=== PATIENT | male | born 1940 | race African-American/Black ===

== ENCOUNTER 2019-06-10 01:27 | Inpatient (IN) | payer MEDICAID ==
[2019-06-10] VITALS (11 sets, daily range): BP systolic 132–159; BP diastolic 78–116
[~2019-06-10] VITALS: Ht 167.6 cm; Wt 54.4 kg
--- NOTE | 2019-06-10 01:30 | NUR ---
ED Nurse Note: Pt brought into ED by HERI from [facility] for c/o chest pain, unknown onset. Pt states he has had the pain for a long time and it has become worse. Pt states pain is mid chest and nonradiating. Per HERI, pt also had temp of 101F at facility, but upon ED arrival temp is 99.0F. Pt is aaox3, breathing is normal and unlabored, HR elevated, but no acute distress noted. Pt placed on fire official and into gown. Will continue to monitor.
[2019-06-10] MEDS ORDERED: ACETAMINOPHEN120 MG RECTAL (01:44)
[2019-06-10] MEDS ORDERED: Acetaminophen 500mg (ES) tab ORAL ONE (01:45)
[2019-06-10] MEDS ORDERED: Cefepime HCl 2 GM in D5W 55 ML IVPB ONE (01:45)
[2019-06-10] MEDS ORDERED: Vancomycin 1 GM in NS 275 ML IVPB ONE (01:45)
[2019-06-10] MEDS ORDERED: MONOJECT H100 UNIT/1 IV (01:46)
[2019-06-10] MEDS ORDERED: BISACODYL5 MG RECTAL (01:46)
[2019-06-10] MEDS ORDERED: IPRAT-ALBUT 0.5-3 ML IH (01:46)
--- NOTE | 2019-06-10 01:46 | Emergency Room Report ---
History of Present Illness General Chief Complaint: Chest Pain Source: Patient, Medical Record, EMS Present Illness HPI Patient is a 79-year-old male past medical history of COPD, pneumonia, sepsis, generalized anxiety disorder, DVT on hospice and palliative care who was sent here from his extended care facility for chest pain. Patient is a poor historian and states that he has had chest pain since February. Patient was found to be febrile and therefore was sent to the emergency room. I asked him if his chest pain was any different tonight than it has been over the past several months and he says no. He denies any chills. He denies any shortness of breath, nausea, abdominal pain or vomiting. He denies any pain to his lower legs. He denies any rash. COVID-19 risk:Contact w/high r: No COVID-19 risk:Travel to affect: No Has patient experienced green: No Coronavirus symptoms experienc: Fever (T>100.4F or >38C) Allergies: Coded Allergies: No Known Allergies (Unverified , 06/10/19) Patient History Social History: Reports: smoking Reviewed Nursing Documentation: PMH: Agreed; PSxH: Agreed Nursing Documentation-PMH Hx COPD: Yes - PNA, respuratoy failure, bilateral lower extremity thromosis Review of Systems All Other Systems: negative except mentioned in HPI Physical Exam Vital Signs Date Time Temp Pulse Resp B/P (MAP) Pulse Ox O2 Delivery O2 Flow Rate FiO2 06/10/19 01:30 100.9 109 18 154/82 (106) 97 Room Air Sp02 EP Interpretation: reviewed, normal General Appearance: other - tearful, Chronically Ill Head: normocephalic, atraumatic Eyes: bilateral eye normal inspection, bilateral eye PERRL ENT: hearing grossly normal, normal pharynx, no angioedema, normal voice Neck: full range of motion, supple/symm/no masses Respiratory: chest non-tender, no respiratory distress, rhonchi, speaking full sentences, wheezing - scattered Cardiovascular #1: tachycardia Cardiovascular #2: 2+ radial (R), 2+ radial (L) Gastrointestinal: normal bowel sounds, non tender, soft, non-distended, no guarding, no rebound Rectal: deferred Neurologic: alert, visitor services coordinator III-XII nml as tested Psychiatric: other - tearful Skin: no rash Lymphatic: no adenopathy Medical Decision Making Diagnostic Impression: Primary Impression: Chest pain Additional Impression: Transaminitis ER Course Patient presented febrile and tachycardic. Patient has history of DVT. Patient pancultured. Patient started on broad-spectrum antibiotics and given IV fluids. Patient also given Tylenol for fever. Patient persistently tachycardic concern for pulmonary embolism. CTA ordered which demonstrates no evidence for PE. Patient will be admitted for further treatment and evaluation. Covid-19 testing sent. Laboratory Tests Test 06/10/19 01:45 06/10/19 02:00 Lactic Acid Level 1.40 mmol/L (0.4-2.0) White Blood Count 7.5 K/UL (4.8-10.8) Red Blood Count 4.06 M/UL (4.70-6.10) L Hemoglobin 12.5 G/DL (14.2-18.0) L Hematocrit 35.1 % (42.0-52.0) L Mean Corpuscular Volume 86 FL (80-99) Mean Corpuscular Hemoglobin 30.8 PG (27.0-31.0) Mean Corpuscular Hemoglobin Concent 35.6 G/DL (32.0-36.0) Red Cell Distribution Width 15.8 % (11.6-14.8) H Platelet Count 186 K/UL (150-450) Mean Platelet Volume 5.5 FL (6.5-10.1) L Neutrophils (%) (Auto) 73.1 % (45.0-75.0) Lymphocytes (%) (Auto) 19.3 % (20.0-45.0) L Monocytes (%) (Auto) 6.6 % (1.0-10.0) Eosinophils (%) (Auto) 0.1 % (0.0-3.0) Basophils (%) (Auto) 0.9 % (0.0-2.0) Prothrombin Time 9.9 SEC (9.30-11.50) Prothrombin Time INR 0.9 (0.9-1.1) Activated Partial Thromboplast Time 25 SEC (23-33) Urine Color Yellow Urine Appearance Clear Urine pH 7 (4.5-8.0) Urine Specific [place] 1.015 (1.005-1.035) Urine Protein Negative (NEGATIVE) Urine Glucose (UA) Negative (NEGATIVE) Urine Ketones Negative (NEGATIVE) Urine Blood Negative (NEGATIVE) Urine Nitrite Negative (NEGATIVE) Urine Bilirubin Negative (NEGATIVE) Urine Urobilinogen 4 MG/DL (0.0-1.0) H Urine Leukocyte Esterase Negative (NEGATIVE) Sodium Level 139 MMOL/L (136-145) Potassium Level 4.1 MMOL/L (3.5-5.1) Chloride Level 99 MMOL/L (98-107) Carbon Dioxide Level 33 MMOL/L (21-32) H Anion Gap 7 mmol/L (5-15) Blood Urea Nitrogen 22 mg/dL (7-18) H Creatinine 0.8 MG/DL (0.55-1.30) Estimated Glomerular Filtration Rate > 60 mL/min (>60) Glucose Level 120 MG/DL (74-106) H Calcium Level 9.3 MG/DL (8.5-10.1) Magnesium Level 1.6 MG/DL (1.8-2.4) L Total Bilirubin 0.9 MG/DL (0.2-1.0) Aspartate Amino Transferase (AST) 96 U/L (15-37) H Alanine Aminotransferase (ALT) 100 U/L (12-78) H Alkaline Phosphatase 343 U/L (46-116) H Total Creatine Kinase 32 U/L (26-308) Troponin I 0.008 ng/mL (0.000-0.056) Pro-B-Type Natriuretic Peptide 715 pg/mL (0-125) H Total Protein 6.7 G/DL (6.4-8.2) Albumin 2.6 G/DL (3.4-5.0) L Globulin 4.1 g/dL Albumin/Globulin Ratio 0.6 (1.0-2.7) L Microbiology Date/Time Source Procedure Growth Status 06/10/19 01:45 Nasal Nares - Final Complete 3 01:45 Nasal Nares - Final Complete EKG Diagnostic Results EKG Time: 01:33 EP Interpretation: MD Tricia Rate: tachycardiac Rhythm: other - sinus tachycardia ST Segments: no acute changes ASA given to the pt in ED: Yes Rhythm Strip Diag. Results Rhythm Strip Time: 01:46 EP Interpretation: yes - MD Tricia Rate: 114 Rhythm: no PVC's, no ectopy, other - sinus tachycardia Last Vital Signs Date Time Temp Pulse Resp B/P (MAP) Pulse Ox O2 Delivery O2 Flow Rate FiO2 06/10/19 01:30 100.9 109 18 154/82 (106) 97 Room Air Disposition: ADMITTED INPATIENT Condition: Critical Physician Consult: Dr. Johnson to admit to telemetry Referrals: NON PHYSICIAN (PCP) Haylee Clarke M.D. Jun 10, 2019 01:46
[2019-06-10] MEDS ORDERED: LEVSIN0.125 MG ORAL (01:50)
[2019-06-10] MEDS ORDERED: MORPHINE S ORAL (01:50)
[2019-06-10] MEDS ORDERED: MORPHINE 22 MG/1 ML PO (01:52)
[2019-06-10] MEDS ORDERED: MORPHINE 22 MG/1 ML ORAL (01:56)
[2019-06-10] MEDS ORDERED: Aspirin Baby 81mg ORAL ONE (02:00)
[2019-06-10] MEDS ORDERED: MULTIVITAMINS1 EA14 PO (02:01)
[2019-06-10] MEDS ORDERED: PROMETHAZI6.25 MG/1 ORAL (02:01)
[2019-06-10] MEDS ORDERED: ONDANSETRON ODT4 MG BC (02:01)
[2019-06-10] MEDS ORDERED: PREDNISONE20 MG ORAL (02:01)
[2019-06-10] MEDS ORDERED: NORCO 5-325 TA1 EAC1 ORAL (02:01)
[2019-06-10 02:31] LABS: APPEARANCE,URINE CLEAR; BILIRUBIN, URINE NEGATIVE (NEGATIVE); GLUCOSE, URINE (UA) NEGATIVE (NEGATIVE); KETONES,URINE NEGATIVE (NEGATIVE); LEUKOCYTE ESTERASE ,URINE NEGATIVE (NEGATIVE); NITRITE,URINE NEGATIVE (NEGATIVE); PH,URINE 7 (4.5-8.0); PROTEIN,URINE NEGATIVE (NEGATIVE); UROBILINOGEN,URINE 4 MG/DL (0.0-1.0)
[2019-06-10 02:34] LABS: BASOPHILS % (AUTO) 0.9 % (0.0-2.0); EOSINOPHILS % (AUTO) 0.1 % (0.0-3.0); HEMATOCRIT 35.1 % (42.0-52.0); HEMOGLOBIN 12.5 G/DL (14.2-18.0); LYMPHOCYTES % (AUTO) 19.3 % (20.0-45.0); MEAN CORPUSCULAR VOLUME 86 FL (80-99); MONOCYTES % (AUTO) 6.6 % (1.0-10.0); NEUTROPHILS % (AUTO) 73.1 % (45.0-75.0); PLATELET COUNT 186 K/UL (150-450); RED BLOOD COUNT 4.06 M/UL (4.70-6.10); RED CELL DISTRIBUTION WIDTH 15.8 % (11.6-14.8); WHITE BLOOD COUNT 7.5 K/UL (4.8-10.8)
[2019-06-10 02:35] LABS: COLOR,URINE YELLOW
[2019-06-10 02:39] LABS: INR 0.9 (0.9-1.1)
[2019-06-10 02:41] LABS: ANION GAP 7 mmol/L (5-15); BLOOD UREA NITROGEN 22 mg/dL (7-18); CALCIUM 9.3 MG/DL (8.5-10.1); CARBON DIOXIDE 33 MMOL/L (21-32); CHLORIDE 99 MMOL/L (98-107); CREATININE 0.8 MG/DL (0.55-1.30); POTASSIUM 4.1 MMOL/L (3.5-5.1); SODIUM 139 MMOL/L (136-145)
[2019-06-10 02:54] LABS: ALANINE AMINOTRANSFERASE 100 U/L (12-78); ALBUMIN 2.6 G/DL (3.4-5.0); ALBUMIN/GLOBULIN RATIO 0.6 (1.0-2.7); ALKALINE PHOSPHATASE 343 U/L (46-116); ASPARTATE AMINO TRANSFERASE 96 U/L (15-37); BILIRUBIN,TOTAL 0.9 MG/DL (0.2-1.0); CREATINE KINASE 32 U/L (26-308)
--- NOTE | 2019-06-10 03:00 | NUR ---
ED Nurse Note: Pt is awake and alert, resting in bed at this time. Pt provided with nourishment after cleared by ERMD. No acute distress noted. VSS for pt. Will continue to monitor.
[2019-06-10] MEDS ORDERED: Omnipaque 350 100ml vial INJ PRN (03:15)
--- NOTE | 2019-06-10 04:24 | Diagnostic Imaging Report ---
Indication: Chest pain Technique: Continuous helical transaxial imaging of the chest was obtained from the thoracic inlet to the upper abdomen during rapid intravenous contrast administration. Arterial phase of enhancement obtained. Coronal 2-D reformats were also obtained and maximum intensity projection images in multiple planes. Study obtained in a Siemens sensation [address] Automatic Exposure Control was utilized. Total Dose length Product (DLP): 140.[address] Dose Index Volume (CTDIvol): 105.43 mGy Comparison: None Findings: The pulmonary artery is well opacified and shows no filling defects. There is no adenopathy, pleural or pericardial effusions are identified. There is no aortic dissection or aneurysm identified within the chest. The esophagus is dilated and there is suggestion of wall thickening. Consider further evaluation with EGD. Reticular densities are demonstrated at both lung bases with bronchiectasis and mild groundglass opacification. There is emphysema within the lungs with scattered areas of hyperlucency. The visualized part of the upper abdomen demonstrates a contracted gallbladder with multiple stones. There may be trace fluid anterior to the liver. IMPRESSION: No evidence of pulmonary embolus, aortic dissection or aneurysm. Pulmonary emphysema and other chronic changes as described above. Gallstones. Trace intracapsular fluid adjacent to the right lobe of the liver. The CT scanner at [facility] is accredited by the [employer] and the scans are performed using dose optimization techniques as appropriate to a performed exam including Automatic Exposure control.
--- NOTE | 2019-06-10 05:30 | NUR ---
ED Nurse Note: Pt resting in bed at this time. No acute distress noted. VSS. Will continue to monitor.
--- NOTE | 2019-06-10 07:20 | NUR ---
HAND-OFF: Report given to MOSHE Billings. Pt is resting in bed at this time. No acute distress noted. Pt is breathing normal and unlabored. Pt does not have pain at this time.
--- NOTE | 2019-06-10 07:30 | NUR ---
ED Nurse Note: Received pt on on bed, awake and alert, VSS, on RA. Will continue to monitor.
--- NOTE | 2019-06-10 09:29 | History and Physical Report ---
DATE OF ADMISSION: 06/10/2019 REASON FOR ADMISSION: Chronic obstructive pulmonary disease, pneumonia, and sepsis. HISTORY: This is a 79-year-old male with multiple medical problems. The patient is apparently on hospice and palliative care. He was sent in from extended care facility for chest discomfort. The patient is a poor historian. He was noted to have fever in the emergency room. The patient has had no chills. No shortness of breath. No nausea. No rash. No abdominal symptoms. The patient was considered to be high risk for COVID-19 and placed on isolation. The patient's care discussed and reviewed with the ER. The patient is started on antibiotics. Imaging reviewed. Laboratory data notable for normal white cell count. The patient events are moderate in severity. The patient is now admitted for acute care and awaiting a bed. PAST MEDICAL HISTORY: Notable for chronic obstructive pulmonary disease, pneumonia, sepsis, anxiety, and DVT. MEDICATIONS: Reviewed. ALLERGIES: Reviewed. SOCIAL HISTORY: Resides at an extended care facility. Nonsmoker, nondrinker, poorly ambulatory. REVIEW OF SYSTEMS: Difficult to obtain. PHYSICAL EXAMINATION: GENERAL: An ill-appearing male. VITAL SIGNS: Reviewed. Heart rate now normal at 99, previously 109, temperature 100.9, blood pressure 147/116, and saturations 100% on room air. HEENT: Negative. NECK: Supple. Extraocular movements are grossly intact. LUNGS: With some scattered rhonchi. Overall with moderate air entry and occasional wheeze. CARDIAC: S1, S2. Regular rate and rhythm. Minimally tachycardic without murmurs. ABDOMEN: Soft and nontender. EXTREMITIES: No cyanosis or clubbing. SKIN: Reviewed. NEUROLOGIC: Weak diffusely, slightly confused. LABORATORY DATA: White count 7.5, hematocrit 35, and platelets 186,000. Chemistries is notable for elevated liver enzymes. Albumin 2.6. Urinalysis with urobilinogen, otherwise negative. IMPRESSION: 1. Emphysema. 2. Chronic obstructive pulmonary disease with acute exacerbation. 3. No clear evidence of pneumonia by CT. 4. History of DVT. 5. Possible sepsis. 6. Tachycardia. 7. Mild dehydration. 8. Transaminitis of unclear etiology. 9. Severe protein-calorie malnutrition. RECOMMENDATIONS: 1. Supportive care. 2. Intravenous antibiotics, empiric. 3. ID evaluation. 4. Isolation. 5. Resume [facility] medications. 6. Monitor clinically and recommend further. 7. Follow-up laboratories and exam. 8. Obtain GI evaluation to assist and await clearance from COVID-19. Hansel De La O M.D. DR: ARABELLA JOB#: [id number] CC:
--- NOTE | 2019-06-10 10:54 | NUR ---
ED Nurse Note: SISTER CASANDRA CELL [phone]
[2019-06-10] MEDS ORDERED: HYDROcodone/Acetamin 5/325 tab ORAL PRN (12:00)
[2019-06-10] MEDS ORDERED: Promethazine Plain 6.25mg/5ml ORAL PRN ×2 (12:00→20:00)
[2019-06-10] MEDS ORDERED: Acetaminophen 650 MG SUPP RECTAL PRN (12:00)
[2019-06-10] MEDS ORDERED: Acetaminophen 500mg (ES) tab ORAL PRN (12:00)
--- NOTE | 2019-06-10 12:52 | Diagnostic Imaging Report ---
Indication: Dyspnea Comparison: None A single view chest radiograph was obtained. Findings: No definite infiltrate or pulmonary vascular congestion identified. The heart is normal in size. The aorta is mildly enlarged consistent with atherosclerotic vascular disease. The bones are osteopenic. There are thoracic vertebral enthesophytes at multiple levels. Impression: No acute disease
--- NOTE | 2019-06-10 13:00 | NUR ---
ED Nurse Note: US tech at bedside.
--- NOTE | 2019-06-10 13:24 | NUR ---
ED Nurse Note: Pt is (-) for DVT per US tech. Pt's VSS, on RA, denies any discomfort nor pain. will continue to monitor.
--- NOTE | 2019-06-10 14:39 | Diagnostic Imaging Report ---
Indication: Left lower extremity pain and swelling. Technique: Duplex Doppler imaging performed from the left common femoral vein to the popliteal vein. FINDINGS: Normal compressibility demonstrated from the common femoral vein to the popliteal vein. Respiratory phasicity and good augmentation demonstrated on waveform analysis. There is no evidence of thrombosis. IMPRESSION: No evidence of deep venous thrombosis within the left lower extremity.
--- NOTE | 2019-06-10 15:58 | NUR ---
Note undone in EDM - 06/10/19 at 1616 by [email or web address] ER Nurse Note: Pt remains at baseline; follows commands, knows name and time. Pt VSS, RA, denies pain. IV patent and infusing fluids at controlled rate. Pt kept clean, dry. Food provided. Urinal at bedside. Harlan at pharmacy stated Zosyn is going to be verfied on the floor and does not need the dose because pt received vanco. All orders completed per orders. Spoke with sister Loredo for an update. All safety measures met; will continue to monitor.
--- NOTE | 2019-06-10 15:58 | NUR ---
ER Nurse Note: Pt remains at baseline; follows commands, knows name and time. Pt VSS, RA, denies pain. IV patent and infusing fluids at controlled rate. Pt kept clean, dry. Pt NPO, informed pt. Urinal at bedside. Harlan at pharmacy stated Georges is going to be verfied on the floor and does not need the dose because pt received vanco. All orders completed per orders. Spoke with sister Loredo for an update. All safety measures met; will continue to monitor.
--- NOTE | 2019-06-10 16:48 | NUR ---
ER Nurse Note: Report given to MOSHE Parrish for continuity of care. VSS, belongings accounted for.
[2019-06-10] MEDS: Hyoscyamine 0.125mg tab ORAL SCH ×2 (16:59→17:00)
--- NOTE | 2019-06-10 17:41 | NUR ---
ER Nurse Note: Pt alseep, no signs of distress, RA, VSS. Pt calm, cooperative. Fluids infusing via RT hand hand. Urinal at bedside. All orders completed per MD orders. All safety measures met; will continue to montior.
--- NOTE | 2019-06-10 17:59 | NUR ---
ER Nurse Note: Left a message for MD for BP PRN meds; no orders. Will endorse to oncoming nurse for continuity of care
--- NOTE | 2019-06-10 18:10 | NUR ---
ER Nurse Note: Pt tranfered to unit; pt stable. BP 159/89; controlled without interventions.
--- NOTE | 2019-06-10 18:30 | NUR ---
NURSE NOTES: Received report from MOSHE Polo. The patient's belongings checked with the patient and two nurses and signed by two nurses. Medical, surgical, allergy, and social history taken by the primary nurse via medical record from [facility] and patient's verbal response. Admitting EKG and medication reconciliation completed at ER. MRSA, VRE, CRD, Influenza, and COVID-19 swabs completed at ER. The patient has R hand 22G intact and patent. No POLST or Advance directive from [facility]. Skin tear on right buttock noted and picture taken. Otherwise, skin intact. Vital signs taken and noted. Paged Dr. De La O for admission order. Will continue plan of care.
--- NOTE | 2019-06-10 19:20 | NUR ---
HAND-OFF: Report given to MOSHE Gallo. The patient is resting on the bed without acute distress or shortness of breath. The patient's bed in the lowest position, call light in reach, and fall and aspiration precaution reinforced. IV site intact and patent. Vital signs stable. Endorsed plan of care.
--- NOTE | 2019-06-10 19:30 | NUR ---
NURSE NOTES: Received pt from MOSHE Parrish. will continue plan of care.
[2019-06-10] MEDS: Piperacillin/Tazobactam 3.375 GM in NS 110 ML IVPB SCH (20:00)
[2019-06-10] MEDS ORDERED: Hyoscyamine 0.125mg tab ORAL PRN (21:00)
--- NOTE | 2019-06-10 22:10 | NUR ---
NURSE NOTES: all due meds given. informed Dr. De La O regarding pt's elevated BP of 147/102. new orders given and will be carried out. called pt's sister/next of kin, Kelly Bowen, regarding pt's code status. per pt's sister, would like pt to be full code at this time. informed pt's sister of visitor restrictions and gave unit phone number. pt's sister verbalized understanding.
[2019-06-11] VITALS: BP 145/92
[2019-06-11] MEDS: Vancomycin 1.5gm/NS Premix IVPB SCH (01:27)
[2019-06-11 04:00] VITALS: BP 150/95
[2019-06-11] MEDS: Piperacillin/Tazobactam 3.375 GM in NS 110 ML IVPB SCH ×3 (05:04→20:25)
[2019-06-11 06:17] LABS: BASOPHILS % (AUTO) 0.8 % (0.0-2.0); EOSINOPHILS % (AUTO) 0.1 % (0.0-3.0); HEMATOCRIT 33.9 % (42.0-52.0); HEMOGLOBIN 11.9 G/DL (14.2-18.0); LYMPHOCYTES % (AUTO) 16.2 % (20.0-45.0); MEAN CORPUSCULAR VOLUME 87 FL (80-99); MONOCYTES % (AUTO) 6.9 % (1.0-10.0); PLATELET COUNT 184 K/UL (150-450); RED BLOOD COUNT 3.88 M/UL (4.70-6.10); RED CELL DISTRIBUTION WIDTH 15.8 % (11.6-14.8); WHITE BLOOD COUNT 6.5 K/UL (4.8-10.8)
[2019-06-11 06:27] LABS: ANION GAP 7 mmol/L (5-15); BLOOD UREA NITROGEN 13 mg/dL (7-18); CALCIUM 8.7 MG/DL (8.5-10.1); CARBON DIOXIDE 30 MMOL/L (21-32); CHLORIDE 101 MMOL/L (98-107); CREATININE 0.6 MG/DL (0.55-1.30); POTASSIUM 3.1 MMOL/L (3.5-5.1); SODIUM 138 MMOL/L (136-145)
--- NOTE | 2019-06-11 06:45 | NUR ---
NURSE NOTES: informed Dr. De La O regarding pt's abnormal labs. new orders given and will be carried out.
--- NOTE | 2019-06-11 07:28 | NUR ---
NURSE NOTES: received patient report f sandra rosado rn. patient is on bed asleep. not in acute distress. on RA tolerating well. NPO pending swallow eval today. k repletion, mag repletion today. fall, aspiration px. droplet px, r/o covid-19. SR on the monitor. will follow plan of care.
--- NOTE | 2019-06-11 07:35 | NUR ---
HAND-OFF: Report given to MOSHE Yanez. endorsed plan of care.
[2019-06-11 08:00] VITALS: BP 137/89
[2019-06-11] MEDS ORDERED: Heparin 5000 units/ml inj SUBQ SCH (09:00)
--- NOTE | 2019-06-11 09:44 | Pulmonology Progress Note ---
Assessment/Plan Assessment/Plan IMPRESSION: 1. Emphysema. 2. Chronic obstructive pulmonary disease with acute exacerbation. 3. No clear evidence of pneumonia by CT. 4. History of DVT. 5. Possible sepsis. 6. Tachycardia. 7. Mild dehydration. 8. Transaminitis of unclear etiology. 9. Severe protein-calorie malnutrition. PLAN care noted respiratory care iv antibiotics ID follow up replace K events noted dc to snf once stable impression, plan, and exam edited and reviewed in detail care discussed with RN Subjective ROS Limited/Unobtainable: Yes Allergies: Coded Allergies: No Known Allergies (Unverified , 06/10/19) Subjective care noted overnight no distress labs reviewed on isolation Objective Last 24 Hour Vital Signs Date Time Temp Pulse Resp B/P (MAP) Pulse Ox O2 Delivery O2 Flow Rate FiO2 06/11/19 05:36 150/95 06/11/19 04:00 69 06/11/19 04:00 97.7 74 18 150/95 (113) 99 06/11/19 04:00 Room Air 06/11/19 00:00 101 06/11/19 00:00 Room Air 06/11/19 00:00 97.9 74 18 145/92 (109) 99 06/10/19 20:00 79 06/10/19 20:00 Room Air 06/10/19 20:00 98.1 79 18 147/102 (117) 99 06/10/19 19:06 Room Air 06/10/19 18:40 97.0 81 18 153/95 (114) 100 06/10/19 18:10 98.5 78 18 159/89 99 Room Air 06/10/19 18:10 98.5 78 18 159/89 99 Room Air 06/10/19 17:43 98.5 82 18 157/109 100 Room Air 06/10/19 15:57 98.5 82 18 142/78 100 Room Air 06/10/19 13:25 98.6 84 18 134/84 100 Room Air 06/10/19 09:45 98.6 84 18 132/82 100 Room Air Intake and Output 06/10/19 06/11/19 19:00 07:00 Intake Total 1330 ml 1150 ml Output Total 750 ml Balance 1330 ml 400 ml Intake Oral 30 ml IV Total 1330 ml 1120 ml Output Urine Total 750 ml Objective GENERAL: An ill-appearing male. no distress HEENT: Negative. NECK: Supple. LUNGS: With some rhonchi. Overall with moderate air entry and scattered wheeze. CARDIAC: S1, S2. Regular rate and rhythm. without murmurs. ABDOMEN: Soft and nontender. no distention EXTREMITIES: No cyanosis or clubbing. SKIN: Reviewed. NEUROLOGIC: Weak diffusely, slightly confused. reviewed and edited Microbiology Date/Time Source Procedure Growth Status 06/10/19 02:00 Blood Blood Culture - Preliminary NO GROWTH AFTER 24 HOURS Resulted 06/10/19 01:45 Blood Blood Culture - Preliminary NO GROWTH AFTER 24 HOURS Resulted 06/10/19 01:45 Nasal Nares - Final Complete 06/10/19 01:45 Nasal Nares - Final Complete 06/10/19 18:00 Rectum Received Laboratory Tests 06/11/19 06:00: White Blood Count 6.5, Red Blood Count 3.88L, Hemoglobin 11.9L, Hematocrit 33.9L , Mean Corpuscular Volume 87, Mean Corpuscular Hemoglobin 30.5, Mean Corpuscular Hemoglobin Concent 34.9, Red Cell Distribution Width 15.8H, Platelet Count 184, Mean Platelet Volume 5.9L, Neutrophils (%) (Auto) 76.0H, Lymphocytes (%) (Auto) 16.2L, Monocytes (%) (Auto) 6.9, Eosinophils (%) (Auto) 0.1, Basophils (%) (Auto) 0.8, Sodium Level 138, Potassium Level 3.1L, Chloride Level 101, Carbon Dioxide Level 30, Anion Gap 7, Blood Urea Nitrogen 13, Creatinine 0.6, Estimat Glomerular Filtration Rate > 60, Glucose Level 115H, Calcium Level 8.7 Current Medications Medications (Trade) Dose Ordered Sig/Jorge Route PRN Reason Start Time Stop Time Status Last Admin Dose Admin Acetaminophen (Tylenol) 500 mg Q6H PRN ORAL mild pain 06/10/19 12:00 07/10/19 11:59 Acetaminophen (Tylenol) 650 mg Q4H PRN RECTAL fever or mild pain 06/10/19 12:00 07/10/19 11:59 Acetaminophen/ Hydrocodone Bitart ([place] 5/325) 1 tab Q6H PRN ORAL PAIN 4-10 06/10/19 12:00 06/17/19 11:59 Bisacodyl (Dulcolax) 10 mg DAILYPRN PRN RECTAL Constipation 06/10/19 12:00 09/08/19 11:59 Clonidine HCl (Catapres Tab) 0.1 mg Q4H PRN ORAL SBP >150 06/10/19 23:00 09/08/19 22:59 06/11/19 05:36 Heparin Sodium (Porcine) (Heparin 5000 units/ml) 5,000 units Q12H SUBQ 06/11/19 09:00 07/26/19 08:59 Hyoscyamine Sulfate (Levsin) 0.125 mg Q4HR PRN ORAL INCREASE SECRETION 06/10/19 21:00 07/10/19 14:14 Iohexol (Omnipaque 350 100ml) 100 ml NOW PRN INJ Radiology Procedure 06/10/19 03:15 06/12/19 03:04 Multivitamins (Multivitamins) 1 tab DAILY ORAL 06/11/19 09:00 07/11/19 08:59 06/11/19 08:53 Ondansetron HCl (Zofran ODT) 4 mg Q8H PRN ORAL nausea/vomiting 06/10/19 12:00 07/10/19 11:59 Piperacillin Sod/ Tazobactam Sod 3.375 gm/Sodium Chloride 110 ml @ 220 mls/hr Q8H IVPB 06/10/19 20:00 06/17/19 19:59 06/11/19 05:04 Potassium Chloride (K-Dur) 40 meq ONCE ORAL 06/11/19 09:00 06/11/19 10:00 06/11/19 08:58 Prednisone (predniSONE) 40 mg DAILY ORAL 06/11/19 09:00 07/11/19 08:59 06/11/19 08:54 Promethazine HCl (Phenergan [place]) 6.25 mg Q6H PRN ORAL cough 06/10/19 12:00 07/10/19 11:59 Sodium Chloride 1,000 ml @ 100 mls/hr Q10H IV 06/10/19 14:13 07/10/19 14:12 06/11/19 00:45 Vancomycin HCl (Vanco rx to dose) 1 ea DAILY PRN MISC Per rx protocol 06/10/19 12:00 07/10/19 11:59 Vancomycin/Sodium Chloride 275 ml @ 137.5 mls/ hr Q24H IVPB 06/11/19 02:00 06/16/19 01:59 06/11/19 01:27 Hansel De La O MD Jun 11, 2019 09:44
[2019-06-11] MEDS: Heparin 5000 units/ml inj SUBQ SCH ×2 (09:45→20:26)
--- NOTE | 2019-06-11 11:04 | Diagnostic Imaging Report ---
Indication: Right lower extremity pain and swelling. Technique: Duplex Doppler imaging performed from the right common femoral vein to the popliteal vein. FINDINGS: Normal compressibility demonstrated from the common femoral vein to the popliteal vein. Respiratory phasicity and good augmentation demonstrated on waveform analysis. There is no evidence of thrombosis. IMPRESSION: No evidence of deep venous thrombosis within the right lower extremity.
[2019-06-11 11:25] VITALS: BP 159/85
--- NOTE | 2019-06-11 11:53 | NUR ---
*-* INSURANCE *-* ALL AVAILABLE CLINICALS HAVE BEEN FAXED TO: [facility] P: [phone] F: [phone] & [facility] F: [phone]
--- NOTE | 2019-06-11 12:48 | NUR ---
NOTES: REFERRED FOR SWALLOWING EVALUATION BY DR GROVER, SEE FULL REPORT IN CARE ACTIVITY SECTION. DYSPHAGIA RISK FACTORS FOR THIS 79 Y.O. ADVANCED AGED MALE: ACUTE ISSUES: SEPSIS, R/O PNA (CXR NEGATIVE BUT HAS SCATTERED RHONCHI IN LUNGS PER MD), CP, COPD WITH EXACERBATION, EMPHYSEMA, MILD DEHYDRATION, TACHYCARDIA, R/O COVID19 (PENDING). ON ROOM AIR 18-20 RESP RATE AND SP02 99-100 RELEVANT MEDS: NORCO AND ZOFRAN. H/O PNA, CHRONIC HYPOXEMIA RESP FAILURE, COPD, PSYCHOACTIVE SUBSTANCE ABUSE, ANXIETY, NICOTINE DEPENDENCE, FATIGUE, POOR MEMORY. NO POLST/AD REGARDIN TUBE FEEDING PREFERENCES. AT SNF ? DIET BUT WAS ON HOSPICE AND PALLIATIVE SUPPORT CARE. NOW NPO EXCEPT MEDS AND ICE CHIPS. PER RN, JENNA, APPEARED TO TOLERATE CRUSHED MEDS WITH APPLESAUCE. PATIENT ASKING FOR FOOD. ALERT AND ABLE TO COMMUNICATE BASIC NEEDS IN SOFT BUT AUDIBLE VOICE.DENIED SWALLOWING PROBLEMS BUT LATER SAID HE HAD NO TEETH/DENTURES AND PUREED WAS FINE. HE ALSO ADMITTED THAT HE SOMETIMES COUGHS ON THIN LIQUIDS AND AGREED TO NECTAR THICK LIQUIDS. INITIAL IMPRESSIONS: MILD OROPHARYNGEAL DYSPHAGIA WITH OVERALL MILD INCREASED IN TRANSIT TIMES. EDENTULOUS AND GROSSLY FUNCTIONAL OROMOTOR SKILLS. WEAK VOLITIONAL AND REFLEXIVE COUGH. VOICE IS SOFT BUT AUDIBLE, NOT WET. GIVEN THIN LIQUIDS VIA STRAW SEQUENTIAL SIPS (3 OZ BOYLE SWALLOW WATER PROTOCOL), ONLY ABLE TO DRINK 3/4 OF WATER AND LAST SWALLOW WAS DELAYED A FEW SECONDS, HE HAD A WEAK COUGH AFTER THE SWALLOW. SLIGHT INCREASE IN RESP RATE WITH SEQUENTIAL SIPS FROM 20 BPM TO 24 REDUCED AFTER BRIEF MIN OF REST ON ROOM AIR. SP02 STABLE GIVEN NECTAR THICK WATER VIA STRAW SEQUENTIAL SIPS, NO OVERT ASPIRATION. GIVEN PUREED TSP, PATIENT CHEWED THE BOLUS FOR 3-4 SECONDS AND SWALLOWED W/O ORAL RESIDUE NOR OVERT ASPIRATION. REFUSED MASTICATED SOLIDS (SAID HE CAN'T CHEW IT W/O DENTITION) MAY HAVE SILENT ASPIRATION RISK MOSTLY DUE TO NEURO DEFICITS (IN MEMORY) AND COPD EXACERBATION LUNGS HAVE SCATTERED RHONCHI BUT CXR CLEAR RECOMMENDATIONS: COMPLETE MOD BARIUM SWALLOW STUDY TO FURTHER ASSESS SWALLOW, DETERMINE SILENT ASPIRATION RISK, AND ATTEMPT TRIAL TX IF PO GIVEN FOR QUALITY OF LIFE (ON HOSPICE/PALLIATIVE CARE), CONSIDER INITIATING MOIST PUREED DIET AND NECTAR THICK LIQUIDS WITH ASSIST AND POSTED ASPIRATION PRECAUTIONS. DIET TYPE AND HIGH JOSEPHINE SUP PER RD (NO REPORT TO DATE). SKILLED DYSPHAGIA MANAGEMENT AND TX AND COG-COM EVAL/TX IF NEEDS EDUCATED/TRAINED RN JENNA IN POSTED PRECAUTIONS.
--- NOTE | 2019-06-11 12:54 | NUR ---
RADIOLOGY DEPT., CHEST X-RAY DONE.-P.DYE
--- NOTE | 2019-06-11 13:51 | Diagnostic Imaging Report ---
Indication: Dyspnea Comparison: 06/10/2019 A single view chest radiograph was obtained. Findings: No definite infiltrate or pulmonary vascular congestion identified. The heart is normal size. The aorta is mildly enlarged consistent with atherosclerotic vascular disease. The bones are osteopenic. There are thoracic vertebral enthesophytes at multiple levels. Impression: No acute disease
--- NOTE | 2019-06-11 13:51 | NUR ---
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 101.0 HR 109 RR 18 B/P 154/82 AST 96 ALT 100 ALK PHOS 348 BNP 718 BUN 22 CXR= NO ACUTE PROCESS CT CHEST= NO PE IS: VANCO IV CEFEPIME IV IV BOLUS NS X 1LITER TYLENOL ADMITTED TO STEP DOWN STEP DOWN STATUS DCP RETURN TO [facility]
--- NOTE | 2019-06-11 15:33 | NUR ---
NURSE NOTES:WOUND CARE NOTES:Pt presented on admission with open DTPI Sacrum. Base of wound has 50% slough,50% yfn. Borders are macerated. No odor or exudate(L)0.8cm x (W)0.5cm x (D)0.3cm.Surrounding base of wound is purple with maroon borders(L)8cm x (W)9.5cm. R heel extending into plantar aspect of heel is fluctuant, Maroon/purple in colour .Tender when palpated. L heel extending into plantar aspect is maroon and fluctuant and is tender when minimally palpated. NO other areas of Skin breakdown noted. Tx.Plan:Cleanse Sacrum with Saline. Apply Therahoney to open wound. Apply Moisture Barrier Paste periwound. Cover with Optifoam drsg. Change Daily and prn. Apply Cavilon Skin Barrier to both heels. Cover each heel with Optifoam drsg. Change every 7 days and prn. Reposition at least every 2hours or as tolerated. Off-load heels with pillow. APM/[place] Mattress overlay.
[2019-06-11 15:35] VITALS: BP 112/86
--- NOTE | 2019-06-11 17:00 | Consultation ---
DATE OF CONSULTATION: 06/11/2019 INFECTIOUS DISEASES CONSULTATION CONSULTING PHYSICIAN: Yohannes Fajardo M.D. REFERRING PHYSICIAN: Hansel De La O M.D. REASON FOR CONSULTATION: Pneumonia. HISTORY OF PRESENTING ILLNESS: This is a 79-year-old gentleman with history of COPD, pneumonia, DVT who came in with chest discomfort. There was a concern for COVID-19 and he was transferred to the emergency room. An Infectious Diseases consultation has been obtained for antibiotics. PAST MEDICAL HISTORY: 1. History of COPD. 2. History of pneumonia. 3. DVT. 4. Anxiety. SOCIAL HISTORY: He is a smoker. He does not drink or use drugs. FAMILY HISTORY: Unknown. REVIEW OF SYSTEMS: RESPIRATORY: No fever, chills, cough, shortness of breath, or chest pain. CARDIAC: No chest pain. No palpitation. No dizziness. No syncope. GASTROINTESTINAL: No nausea. No vomiting. No abdominal pain or diarrhea. MEDICATIONS: As an inpatient, he is on multivitamin, prednisone, subcutaneous heparin, vancomycin, Zosyn, clonidine, hyoscyamine, Tylenol, Dulcolax, Moran, promethazine, Zofran. ALLERGIES: No known drug allergies. PHYSICAL EXAMINATION: VITAL SIGNS: Temperature of 96.4, T-max of 100.9, pulse of 67, respiratory rate of 19, blood pressure 137/89, O2 saturation 100%. HEENT: Pupils equally reactive to light and accommodation. Mouth appears clean without thrush. NECK: Supple. No adenopathy. No JVD. CARDIOVASCULAR: Regular rate and rhythm. No murmurs. LUNGS: Clear to auscultation bilaterally. No crackles. No wheezes. ABDOMEN: Soft, nontender. No organomegaly. EXTREMITIES: No cyanosis, no clubbing, no edema. LABORATORY AND DIAGNOSTIC DATA: White count 6.5, hemoglobin 11.9, hematocrit 33.9, MCV 87, platelet count of 184. Sodium 138, potassium 3.1, chloride 101, bicarb 30, BUN 13, creatinine 0.6, glucose 115, calcium of 8.7. Total bilirubin 0.9, AST 96, ALT 100, alkaline phosphatase 343. CK of 32. Troponin 0.008. Beta-natriuretic peptide 715. Total protein 6.7. Albumin 2.6. UA is showing nitrite negative. Blood cultures are negative. Nasal swab was negative for influenza A and B. Ultrasound legs showed no evidence of DVT. CT chest angiogram showing no evidence of pulmonary embolism, aortic dissection, or aneurysm, pulmonary emphysema and other chronic changes noted, gallstones, trace intracapsular fluid adjacent to the right lobe of the liver noted. Chest x-ray was unremarkable. ASSESSMENT: This is a 79-year-old gentleman with history of COPD, who comes in with chest discomfort and is found to have. 1. Fevers. We would like to rule out pneumonia as a possibility. 2. We would also like to rule out urinary tract infection as a possibility. 3. COPD. 4. Fevers, improving. PLAN: 1. Continue IV vancomycin and Zosyn for now. 2. Continue isolation. 3. COVID-19 test is pending. 4. We will order sputum for Gram stain and culture. 5. We will order urine cultures. I would like to thank Dr. De La O for this consultation. Yohannes Fajadro M.D. DR: LEIGH ANN JOB#: [id number] CC: Hansel De La O M.D.; Fax#: [phone]
--- NOTE | 2019-06-11 19:21 | NUR ---
NURSE NOTES: report given to ashlee olivares
--- NOTE | 2019-06-11 19:47 | NUR ---
NURSE NOTES: Received patient from MOSHE Yanez. will continue plan of care.
[2019-06-11 20:00] VITALS: BP 133/87
--- NOTE | 2019-06-11 21:08 | NUR ---
NURSE NOTES: all due meds given. pt is observed in bed, eyes open, AO X3, watching television. no s/sx of pain noted. pt is on room air, tolerating well, saturation: 98%. no s/sx of respiratory distress noted. nuclear monitoring technician shows SR at this time with HR of 80, no acute cardiac distress noted at this time. urinal at bedside. skin alterations noted. RW 24 g IV site is patent and intact, running NS at 100 cc/hr. bed in lowest position and locked, siderails up X3, call light within reach. will continue to monitor.
[2019-06-12] VITALS: BP 144/86
[2019-06-12] MEDS: Vancomycin 1.5gm/NS Premix IVPB SCH (01:22)
[2019-06-12 04:00] VITALS: BP 164/97
[2019-06-12] MEDS: Piperacillin/Tazobactam 3.375 GM in NS 110 ML IVPB SCH ×3 (04:40→20:08)
--- NOTE | 2019-06-12 06:54 | NUR ---
HAND-OFF: Report given to MOSHE Yanez. endorsed plan of care.
--- NOTE | 2019-06-12 07:10 | NUR ---
NURSE NOTES: received patient report f sandra rosado rn. patient is on bed asleep. not in acute distress. on RA tolerating well. fall, aspiration px. droplet px, r/o covid-19.awaiting result. SR on the monitor. will follow plan of care.
[2019-06-12 08:00] VITALS: BP 134/78
[2019-06-12] MEDS: Heparin 5000 units/ml inj SUBQ SCH ×2 (08:53→21:00)
--- NOTE | 2019-06-12 09:43 | Pulmonology Progress Note ---
Assessment/Plan Assessment/Plan IMPRESSION: 1. Emphysema. 2. Chronic obstructive pulmonary disease with acute exacerbation. 3. No clear evidence of pneumonia by CT. 4. History of DVT. 5. Possible sepsis. 6. Tachycardia. 7. Mild dehydration. 8. Transaminitis of unclear etiology. 9. Severe protein-calorie malnutrition. PLAN care noted respiratory care iv antibiotics ID follow up and clearance monitor lytes events noted dc to snf once cleared impression, plan, and exam edited and reviewed in detail care discussed with RN Subjective ROS Limited/Unobtainable: Yes Allergies: Coded Allergies: No Known Allergies (Unverified , 06/10/19) Subjective care noted overnight no distress labs reviewed; cxr negative on isolation Objective Last 24 Hour Vital Signs Date Time Temp Pulse Resp B/P (MAP) Pulse Ox O2 Delivery O2 Flow Rate FiO2 06/12/19 08:00 96.8 87 18 134/78 (96) 98 06/12/19 07:27 70 06/12/19 07:25 Room Air 06/12/19 05:18 164/97 06/12/19 04:00 71 06/12/19 04:00 Room Air 06/12/19 04:00 97.5 76 20 164/97 (119) 98 06/12/19 00:00 83 06/12/19 00:00 Room Air 06/12/19 00:00 98.3 83 18 144/86 (105) 99 06/11/19 20:00 98.7 84 20 133/87 (102) 98 06/11/19 20:00 82 06/11/19 20:00 Room Air 06/11/19 16:00 Room Air 06/11/19 15:44 101 06/11/19 15:35 96.1 100 20 112/86 (95) 100 06/11/19 12:00 Room Air 06/11/19 11:52 60 06/11/19 11:25 96.3 69 20 159/85 (109) 100 Intake and Output 06/11/19 06/12/19 19:00 07:00 Intake Total 1510 ml 1604.156 ml Output Total 450 ml 700 ml Balance 1060 ml 904.156 ml Intake Oral 300 ml 30 ml IV Total 1210 ml 1574.156 ml Output Urine Total 450 ml 700 ml # Voids 3 4 # Bowel Movements 1 Objective GENERAL: An ill-appearing male. no distress HEENT: Negative. NECK: Supple. LUNGS: reduced rhonchi. Overall with moderate air entry and scattered wheeze. CARDIAC: S1, S2. Regular rate and rhythm. without murmurs. ABDOMEN: Soft and nontender. no distention EXTREMITIES: No cyanosis or clubbing. SKIN: Reviewed. NEUROLOGIC: Weak diffusely, confused. reviewed and edited Microbiology Date/Time Source Procedure Growth Status 06/10/19 02:00 Blood Blood Culture - Preliminary NO GROWTH AFTER 48 HOURS Resulted 06/10/19 01:45 Blood Blood Culture - Preliminary NO GROWTH AFTER 48 HOURS Resulted 06/10/19 18:00 Nasal Nares MRSA Culture - Final NO METHICILLIN RESISTANT STAPH AUREUS... Complete 06/10/19 01:45 Nasal Nares - Final Complete 06/10/19 01:45 Nasal Nares - Final Complete 06/11/19 15:20 Urine,Clean Catch Urine Culture - Preliminary NO GROWTH Resulted 06/10/19 18:00 Rectum VRE Culture - Final NO VANCOMYCIN RESISTANT ENTEROCOCCUS ... Complete Current Medications Medications (Trade) Dose Ordered Sig/Jorge Route PRN Reason Start Time Stop Time Status Last Admin Dose Admin Acetaminophen (Tylenol) 500 mg Q6H PRN ORAL mild pain 06/10/19 12:00 07/10/19 11:59 Acetaminophen (Tylenol) 650 mg Q4H PRN RECTAL fever or mild pain 06/10/19 12:00 07/10/19 11:59 Acetaminophen/ Hydrocodone Bitart ([place] 5/325) 1 tab Q6H PRN ORAL PAIN 4-10 06/10/19 12:00 06/17/19 11:59 Bisacodyl (Dulcolax) 10 mg DAILYPRN PRN RECTAL Constipation 06/10/19 12:00 09/08/19 11:59 Clonidine HCl (Catapres Tab) 0.1 mg Q4H PRN ORAL SBP >150 06/10/19 23:00 09/08/19 22:59 06/12/19 05:18 Heparin Sodium (Porcine) (Heparin 5000 units/ml) 5,000 units Q12H SUBQ 06/11/19 09:00 07/26/19 08:59 06/12/19 08:53 Hyoscyamine Sulfate (Levsin) 0.125 mg Q4HR PRN ORAL INCREASE SECRETION 06/10/19 21:00 07/10/19 14:14 Multivitamins (Multivitamins) 1 tab DAILY ORAL 06/11/19 09:00 07/11/19 08:59 06/12/19 08:46 Ondansetron HCl (Zofran ODT) 4 mg Q8H PRN ORAL nausea/vomiting 06/10/19 12:00 07/10/19 11:59 Piperacillin Sod/ Tazobactam Sod 3.375 gm/Sodium Chloride 110 ml @ 27.5 mls/hr Q8H IVPB 06/11/19 20:00 06/17/19 19:59 06/12/19 04:40 Prednisone (predniSONE) 40 mg DAILY ORAL 06/11/19 09:00 07/11/19 08:59 06/12/19 08:46 Promethazine HCl (Phenergan Plain) 6.25 mg Q6H PRN ORAL cough 06/10/19 12:00 07/10/19 11:59 Sodium Chloride 1,000 ml @ 100 mls/hr Q10H IV 06/10/19 14:13 07/10/19 14:12 06/12/19 06:20 Vancomycin HCl (Vanco rx to dose) 1 ea DAILY PRN MISC Per rx protocol 06/10/19 12:00 07/10/19 11:59 Vancomycin/Sodium Chloride 275 ml @ 137.5 mls/ hr Q24H IVPB 06/11/19 02:00 06/16/19 01:59 06/12/19 01:22 Hansel De La O MD Jun 12, 2019 09:43
[2019-06-12 12:00] VITALS: BP 155/96
--- NOTE | 2019-06-12 12:48 | Infectious Diseases Prog Note ---
Assessment/Plan Assessment/Plan A: 1. Fevers. resolved 2. Emphysema 3. COPD. 4. Nicotine dependence 5. Elevated tranamisa PLAN: 1. Discontinue IV vancomycin, continue Zosyn for now. 2. Continue isolation. 3. COVID-19 test is pending. Subjective ROS Limited/Unobtainable: No Constitutional: Reports: no symptoms, other - feels better Respiratory: Reports: other - bilateral chest pain Gastrointestinal/Abdominal: Reports: no symptoms Genitourinary: Reports: no symptoms Allergies: Coded Allergies: No Known Allergies (Unverified , 06/10/19) Objective Vital Signs Last 24 Hour Vital Signs Date Time Temp Pulse Resp B/P (MAP) Pulse Ox O2 Delivery O2 Flow Rate FiO2 06/12/19 12:00 Room Air 06/12/19 12:00 97.9 77 18 155/96 (115) 96 06/12/19 08:00 96.8 87 18 134/78 (96) 98 06/12/19 07:27 70 06/12/19 07:25 Room Air 06/12/19 05:18 164/97 06/12/19 04:00 71 06/12/19 04:00 Room Air 06/12/19 04:00 97.5 76 20 164/97 (119) 98 06/12/19 00:00 83 06/12/19 00:00 Room Air 06/12/19 00:00 98.3 83 18 144/86 (105) 99 06/11/19 20:00 98.7 84 20 133/87 (102) 98 06/11/19 20:00 82 06/11/19 20:00 Room Air 06/11/19 16:00 Room Air 06/11/19 15:44 101 06/11/19 15:35 96.1 100 20 112/86 (95) 100 Height (Feet): 5 Height (Inches): 6.00 Weight (Pounds): 120 General Appearance: no acute distress HEENT: mucous membranes moist Respiratory/Chest: decreased breath sounds Cardiovascular: normal rate Abdomen: soft, non tender Extremities: no edema Neurologic/Psychiatric: alert, oriented x 3, responsive Microbiology Date/Time Source Procedure Growth Status 06/10/19 02:00 Blood Blood Culture - Preliminary NO GROWTH AFTER 48 HOURS Resulted 06/10/19 01:45 Blood Blood Culture - Preliminary NO GROWTH AFTER 48 HOURS Resulted 06/10/19 18:00 Nasal Nares MRSA Culture - Final NO METHICILLIN RESISTANT STAPH AUREUS... Complete 06/10/19 01:45 Nasal Nares - Final Complete 06/10/19 01:45 Nasal Nares - Final Complete 06/11/19 15:20 Urine,Clean Catch Urine Culture - Preliminary NO GROWTH Resulted 06/10/19 18:00 Rectum VRE Culture - Final NO VANCOMYCIN RESISTANT ENTEROCOCCUS ... Complete Current Medications Medications (Trade) Dose Ordered Sig/Jorge Route PRN Reason Start Time Stop Time Status Last Admin Dose Admin Acetaminophen (Tylenol) 500 mg Q6H PRN ORAL mild pain 06/10/19 12:00 07/10/19 11:59 Acetaminophen (Tylenol) 650 mg Q4H PRN RECTAL fever or mild pain 06/10/19 12:00 07/10/19 11:59 Acetaminophen/ Hydrocodone Bitart ([place] 5/325) 1 tab Q6H PRN ORAL PAIN 4-10 06/10/19 12:00 06/17/19 11:59 Bisacodyl (Dulcolax) 10 mg DAILYPRN PRN RECTAL Constipation 06/10/19 12:00 09/08/19 11:59 Clonidine HCl (Catapres Tab) 0.1 mg Q4H PRN ORAL SBP >150 06/10/19 23:00 09/08/19 22:59 06/12/19 05:18 Heparin Sodium (Porcine) (Heparin 5000 units/ml) 5,000 units Q12H SUBQ 06/11/19 09:00 07/26/19 08:59 06/12/19 08:53 Hyoscyamine Sulfate (Levsin) 0.125 mg Q4HR PRN ORAL INCREASE SECRETION 06/10/19 21:00 07/10/19 14:14 Multivitamins (Multivitamins) 1 tab DAILY ORAL 06/11/19 09:00 07/11/19 08:59 06/12/19 08:46 Ondansetron HCl (Zofran ODT) 4 mg Q8H PRN ORAL nausea/vomiting 06/10/19 12:00 07/10/19 11:59 Piperacillin Sod/ Tazobactam Sod 3.375 gm/Sodium Chloride 110 ml @ 27.5 mls/hr Q8H IVPB 06/11/19 20:00 06/17/19 19:59 06/12/19 12:10 Prednisone (predniSONE) 40 mg DAILY ORAL 06/11/19 09:00 07/11/19 08:59 06/12/19 08:46 Promethazine HCl (Phenergan Plain) 6.25 mg Q6H PRN ORAL cough 06/10/19 12:00 07/10/19 11:59 Sodium Chloride 1,000 ml @ 100 mls/hr Q10H IV 06/10/19 14:13 07/10/19 14:12 06/12/19 06:20 Vancomycin HCl (Vanco rx to dose) 1 ea DAILY PRN MISC Per rx protocol 06/10/19 12:00 07/10/19 11:59 Vancomycin/Sodium Chloride 275 ml @ 137.5 mls/ hr Q24H IVPB 06/11/19 02:00 06/16/19 01:59 06/12/19 01:22 Zenon Prado MD Jun 12, 2019 12:48
--- NOTE | 2019-06-12 14:41 | NUR ---
*-* INSURANCE *-* ALL AVAILABLE CLINICALS HAVE BEEN FAXED TO: [facility] P: [phone] F: [phone] & [facility] F: [phone] Addendum: 06/13/19 at 1005 by HUNTER AMATO *-* INSURANCE *-* ALL AVAILABLE CLINICALS HAVE BEEN FAXED TO: [facility] REF# [id number] NCM:KAN P: [phone] [id number] F: [phone] & [facility] F: [phone]
--- NOTE | 2019-06-12 14:47 | NUR ---
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 97.9 HR 77 RR 18 B/P 155/90 RA 98% IS: ZOSYN IV IVF NS@ 100ML/HR HEPARIN SUBC WOUND CONSULT STEP DOWN STATUS
[2019-06-12 16:00] VITALS: BP 157/95
--- NOTE | 2019-06-12 19:11 | NUR ---
NURSE NOTES: received patient report flower rosado rn. patient is on bed asleep. not in acute distress. on RA tolerating well. fall, aspiration px. droplet px, r/o covid-19.awaiting result. SR on the monitor. will follow plan of care. Addendum: 06/12/19 at 1913 by SHORTY PADRON RN disregard notes above
--- NOTE | 2019-06-12 19:19 | NUR ---
NURSE NOTES: report given to monico olivares
--- NOTE | 2019-06-12 19:20 | NUR ---
NURSE NOTES: Received patient and report from MOSHE Yanez. Patient is observed resting in bed and remains alert and oriented x2-3. No pain noted upon assessment. Pt is on RA with no s/sx of acute distress. Pt noted to be ST on tele monitor with a current HR of 118 with no s/sx of acute distress. R Wrist 24g IV catheter noted which remains asymptomatic, patent and intact. Skin alterations noted; dressing remains clean, dry and intact. Diagnostics reviewed. Pt remains resting in bed; Bed remains in the lowest position with the safety wheels engaged, call light within reach, side rails up x3 and bed alarm activated. Will continue plan of care. Will continue to monitor.
[2019-06-12 20:00] VITALS: BP 154/84
--- NOTE | 2019-06-12 21:00 | NUR ---
NURSE NOTES: Pt reported epistaxis; bleeding controlled and noted to be minimal. Heparin held r/t active bleeding. Will continue to monitor.
--- NOTE | 2019-06-12 23:43 | NUR ---
NURSE NOTES: Pt provided with a bed bath, oral care and linen change. Pt tolerated care well. Pt remains resting in bed; Bed remains in the lowest position with the safety wheels engaged, call light within reach, side rails up x3 and bed alarm activated. Will continue plan of care. Will continue to monitor.
[2019-06-13] VITALS: BP 152/80
[2019-06-13] MEDS: Piperacillin/Tazobactam 3.375 GM in NS 110 ML IVPB SCH (03:28)
[2019-06-13 04:00] VITALS: BP 157/89
--- NOTE | 2019-06-13 07:33 | NUR ---
HAND-OFF: Report given to MOSHE Castellanos. Pt remains stable at this time. Endorsed plan of care.
--- NOTE | 2019-06-13 07:55 | NUR ---
NURSE NOTES: TRANSFER PT VIA BED ON STABLE CONDITIONS TO [address] [place] [address] 221 BED 1. REPORT GIVEN TO GATO DIRECTOR PRODUCT MANAGEMENT. PT IS NEGATIVE FROM COVID 19 ACCORDING TO MARISEL RN IN CHARGE.
[2019-06-13 08:00] VITALS: BP 148/87
[2019-06-13] MEDS ORDERED: Hyoscyamine 0.125mg tab ORAL PRN (08:00)
[2019-06-13] MEDS ORDERED: HYDROcodone/Acetamin 5/325 tab ORAL PRN (08:00)
[2019-06-13] MEDS ORDERED: Acetaminophen 500mg (ES) tab ORAL PRN (08:00)
[2019-06-13] MEDS ORDERED: Acetaminophen 650 MG SUPP RECTAL PRN (08:00)
[2019-06-13] MEDS ORDERED: Promethazine Plain 6.25mg/5ml ORAL PRN (08:00)
--- NOTE | 2019-06-13 08:15 | NUR ---
PATIENT RECEIVED FROM JOSEF.PATIENT A/O X3. IMPAIRED SKIN INTEGRITY NOTED IN RIGHT AND LEFT BUTTOCK, AND BOTH HEELS.. NO C/O PAIN. RAILS UP X 3, CALL LIGHT WITH IN REACH, BED AT LOWEST POSITION AND ALARM ON FOR SAFETY REASONS.
[2019-06-13] MEDS ORDERED: Heparin 5000 units/ml inj SUBQ SCH (09:00)
--- NOTE | 2019-06-13 09:08 | Pulmonology Progress Note ---
Assessment/Plan Assessment/Plan IMPRESSION: 1. Emphysema. 2. Chronic obstructive pulmonary disease with acute exacerbation. 3. No clear evidence of pneumonia by CT. 4. History of DVT. 5. Possible sepsis. 6. Tachycardia. 7. Mild dehydration. 8. Transaminitis of unclear etiology. 9. Severe protein-calorie malnutrition. PLAN care noted respiratory care iv antibiotics ID follow up and clearance monitor lytes events noted dc to snf once cleared at present, no distress impression, plan, and exam edited and reviewed in detail care discussed with RN Subjective ROS Limited/Unobtainable: Yes Allergies: Coded Allergies: No Known Allergies (Unverified , 06/10/19) Subjective care noted overnight no distress labs reviewed; cxr negative on isolation still awaiting COVID Objective Last 24 Hour Vital Signs Date Time Temp Pulse Resp B/P (MAP) Pulse Ox O2 Delivery O2 Flow Rate FiO2 06/13/19 04:00 98.1 82 18 157/89 (111) 96 06/13/19 04:00 Room Air 06/13/19 03:33 78 06/13/19 00:00 97.6 76 16 152/80 (104) 96 06/13/19 00:00 Room Air 06/12/19 23:25 78 06/12/19 20:00 Room Air 06/12/19 20:00 97.8 86 16 154/84 (107) 95 06/12/19 19:15 86 06/12/19 16:00 Room Air 06/12/19 16:00 83 06/12/19 12:00 Room Air 06/12/19 12:00 97.9 77 18 155/96 (115) 96 06/12/19 11:34 71 Intake and Output 06/12/19 06/13/19 19:00 07:00 Intake Total 1578.33 ml 744.674 ml Output Total 850 ml 950 ml Balance 728.33 ml -205.326 ml Intake Oral 350 ml 120 ml IV Total 1228.33 ml 624.674 ml Output Urine Total 850 ml 950 ml # Bowel Movements 3 Objective GENERAL: An ill-appearing male. no distress HEENT: Negative. NECK: Supple. LUNGS: reduced rhonchi. Overall with moderate air entry and scattered wheeze. CARDIAC: S1, S2. Regular rate and rhythm. without murmurs. ABDOMEN: Soft and nontender. no distention EXTREMITIES: No cyanosis or clubbing. SKIN: Reviewed. NEUROLOGIC: Weak diffusely, confused. reviewed and edited Microbiology Date/Time Source Procedure Growth Status 06/11/19 21:00 Sputum Gram Stain - Final Resulted 06/11/19 21:00 Sputum Sputum Culture Pending Resulted 06/10/19 18:00 Nasal Nares MRSA Culture - Final NO METHICILLIN RESISTANT STAPH AUREUS... Complete 06/11/19 15:20 Urine,Clean Catch Urine Culture - Final NO GROWTH AFTER 48 HOURS Complete 06/10/19 18:00 Rectum - Final NO CARBAPENEM-RESISTANT ENTEROBACTERI... Complete 06/10/19 18:00 Rectum VRE Culture - Final NO VANCOMYCIN RESISTANT ENTEROCOCCUS ... Complete Current Medications Medications (Trade) Dose Ordered Sig/Jorge Route PRN Reason Start Time Stop Time Status Last Admin Dose Admin Acetaminophen (Tylenol) 500 mg Q6H PRN ORAL mild pain 06/13/19 08:00 07/10/19 07:59 Acetaminophen (Tylenol) 650 mg Q4H PRN RECTAL fever or mild pain 06/13/19 08:00 07/10/19 11:59 Acetaminophen/ Hydrocodone Bitart ([place] 5/325) 1 tab Q6H PRN ORAL PAIN 4-10 06/13/19 08:00 06/17/19 07:59 Bisacodyl (Dulcolax) 10 mg DAILYPRN PRN RECTAL Constipation 06/13/19 08:00 09/08/19 07:59 Clonidine HCl (Catapres Tab) 0.1 mg Q4H PRN ORAL SBP >150 06/13/19 08:00 09/08/19 07:59 Heparin Sodium (Porcine) (Heparin 5000 units/ml) 5,000 units Q12H SUBQ 06/13/19 09:00 07/26/19 08:59 Hyoscyamine Sulfate (Levsin) 0.125 mg Q4H PRN ORAL INCREASE SECRETION 06/13/19 08:00 07/13/19 07:59 Multivitamins (Multivitamins) 1 tab DAILY ORAL 06/13/19 09:00 07/11/19 08:59 Ondansetron HCl (Zofran ODT) 4 mg Q8H PRN ORAL nausea/vomiting 06/13/19 08:00 07/10/19 07:59 Piperacillin Sod/ Tazobactam Sod 3.375 gm/Sodium Chloride 110 ml @ 27.5 mls/hr Q8H IVPB 06/13/19 12:00 06/17/19 19:59 Prednisone (predniSONE) 40 mg DAILY ORAL 06/13/19 09:00 07/11/19 08:59 Promethazine HCl (Phenergan Plain) 6.25 mg Q6H PRN ORAL cough 06/13/19 08:00 07/10/19 07:59 Sodium Chloride 1,000 ml @ 100 mls/hr Q10H IV 06/13/19 08:00 07/10/19 14:12 Hansel De La O MD Jun 13, 2019 09:08
--- NOTE | 2019-06-13 11:25 | NUR ---
CASE MANAGEMENT: REVIEW 06/13/2019 SI: Emphysema. Chronic obstructive pulmonary disease with acute exacerbation. VS: T 98.1 HR 82 RR 18 B/P 157/89 SATS 96% ON RA LABS: COVID -19 NEG IS:NS @ 100 ML/HR PREDNISONE PO QD ZOSYN IV Q8H TELE PLAN OF CARE: DC PLANNING TO SNF ONCE CLEARED BY ID
--- NOTE | 2019-06-13 11:35 | NUR ---
INSURANCE REVIEW HAS BEEN FAXED TO: [facility] REF# [id number] [facility]:KAN P: [phone] F: [phone] & [facility] F: [phone]
--- NOTE | 2019-06-13 11:57 | Infectious Diseases Prog Note ---
Assessment/Plan Assessment/Plan A: 1. Fevers. resolved 2. Emphysema 3. COPD. 4. Nicotine dependence 5. Elevated tranamisa PLAN: 1. Change Zosyn to Levaquin 2. Discontinue isolation. 3. COVID-19 test is negative 4. agree with discharge Subjective ROS Limited/Unobtainable: No Constitutional: Reports: no symptoms Respiratory: Reports: no symptoms Cardiovascular: Reports: no symptoms Gastrointestinal/Abdominal: Reports: no symptoms Allergies: Coded Allergies: No Known Allergies (Unverified , 06/10/19) Objective Vital Signs Last 24 Hour Vital Signs Date Time Temp Pulse Resp B/P (MAP) Pulse Ox O2 Delivery O2 Flow Rate FiO2 06/13/19 08:00 74 06/13/19 08:00 Room Air 06/13/19 08:00 98.2 68 18 148/87 (107) 100 06/13/19 04:00 98.1 82 18 157/89 (111) 96 06/13/19 04:00 Room Air 06/13/19 03:33 78 06/13/19 00:00 97.6 76 16 152/80 (104) 96 06/13/19 00:00 Room Air 06/12/19 23:25 78 06/12/19 20:00 Room Air 06/12/19 20:00 97.8 86 16 154/84 (107) 95 06/12/19 19:15 86 06/12/19 16:00 Room Air 06/12/19 16:00 83 06/12/19 12:00 Room Air 06/12/19 12:00 97.9 77 18 155/96 (115) 96 Height (Feet): 5 Height (Inches): 6.00 Weight (Pounds): 120 General Appearance: no acute distress HEENT: mucous membranes moist Respiratory/Chest: lungs clear Cardiovascular: normal rate Abdomen: soft, non tender Extremities: no edema Neurologic/Psychiatric: alert, responsive Microbiology Date/Time Source Procedure Growth Status 06/11/19 21:00 Sputum Gram Stain - Final Resulted 06/11/19 21:00 Sputum Sputum Culture Pending Resulted 06/10/19 18:00 Nasal Nares MRSA Culture - Final NO METHICILLIN RESISTANT STAPH AUREUS... Complete 06/11/19 15:20 Urine,Clean Catch Urine Culture - Final NO GROWTH AFTER 48 HOURS Complete 06/10/19 18:00 Rectum - Final NO CARBAPENEM-RESISTANT ENTEROBACTERI... Complete 06/10/19 18:00 Rectum VRE Culture - Final NO VANCOMYCIN RESISTANT ENTEROCOCCUS ... Complete Current Medications Medications (Trade) Dose Ordered Sig/Jorge Route PRN Reason Start Time Stop Time Status Last Admin Dose Admin Acetaminophen (Tylenol) 500 mg Q6H PRN ORAL mild pain 06/13/19 08:00 07/10/19 07:59 Acetaminophen (Tylenol) 650 mg Q4H PRN RECTAL fever or mild pain 06/13/19 08:00 07/10/19 11:59 Acetaminophen/ Hydrocodone Bitart ([place] 5/325) 1 tab Q6H PRN ORAL PAIN 4-10 06/13/19 08:00 06/17/19 07:59 Bisacodyl (Dulcolax) 10 mg DAILYPRN PRN RECTAL Constipation 06/13/19 08:00 09/08/19 07:59 Clonidine HCl (Catapres Tab) 0.1 mg Q4H PRN ORAL SBP >150 06/13/19 08:00 09/08/19 07:59 Heparin Sodium (Porcine) (Heparin 5000 units/ml) 5,000 units Q12H SUBQ 06/13/19 09:00 07/26/19 08:59 Hyoscyamine Sulfate (Levsin) 0.125 mg Q4H PRN ORAL INCREASE SECRETION 06/13/19 08:00 07/13/19 07:59 Multivitamins (Multivitamins) 1 tab DAILY ORAL 06/13/19 09:00 07/11/19 08:59 06/13/19 09:06 Ondansetron HCl (Zofran ODT) 4 mg Q8H PRN ORAL nausea/vomiting 06/13/19 08:00 07/10/19 07:59 Piperacillin Sod/ Tazobactam Sod 3.375 gm/Sodium Chloride 110 ml @ 27.5 mls/hr Q8H IVPB 06/13/19 12:00 06/17/19 19:59 06/13/19 11:54 Prednisone (predniSONE) 40 mg DAILY ORAL 06/13/19 09:00 07/11/19 08:59 06/13/19 09:06 Promethazine HCl (Phenergan Plain) 6.25 mg Q6H PRN ORAL cough 06/13/19 08:00 07/10/19 07:59 Sodium Chloride 1,000 ml @ 100 mls/hr Q10H IV 06/13/19 08:00 07/10/19 14:12 06/13/19 09:06 Zenon Prado MD Jun 13, 2019 11:57
[2019-06-13 12:00] VITALS: BP 158/97
[2019-06-13] MEDS ORDERED: Piperacillin/Tazobactam 3.375 GM in NS 110 ML IVPB SCH (12:00)
[2019-06-13] MEDS ORDERED: Levofloxacin 750mg tab ORAL SCH (12:30)
--- NOTE | 2019-06-13 13:29 | NUR ---
DISCHARGE DISPOSITION: PLEASE READ PATIENT TO BE DISCHARGED TO [facility] [id number] T: [phone]>> CALL FOR REPORT [facility] ETA [phone] CALL PLACED TO SISTER CASANDRA CRUZ >>>MESSAGE LEFT TRANSFER PACKET TO BE DELIVERED
[2019-06-13] MEDS ORDERED: LEVAQUIN750 MG ORAL (14:31)
--- NOTE | 2019-06-13 15:38 | NUR ---
REPORT GIVEN TO AISHWARYA MESA @ [facility] MADE AWARE THAT PATIENT SCHEDULED TO DC AROUND 1500 PM.WOUND PIC TAKEN PER PROTOCOL. NO C/O PAIN AND VITAL SIGNS STABLE AT THIS TIME. WILL CONTINUE TO MONITOR.
[2019-06-13 16:00] VITALS: BP 158/96
--- NOTE | 2019-06-13 18:00 | NUR ---
NURSE NOTES: Pt left the unit with ambulance personnel in stable condition. IV and tele monitor removed, no bleeding noted. Per primary RN, report was already given to the RN at [facility]. Emphasized that the pt needs to continue Levaquin X5 more days, per MD. Belongings brought by pt with him.
[2019-06-13] MEDS ORDERED: NS 275ml ONE (18:05)
[2019-06-13] MEDS ORDERED: Tubing IV Secondary IV ONE (18:05)
--- NOTE | 2019-06-14 13:05 | Discharge Summary ---
Discharge Summary Discharge Summary _ DATE OF ADMISSION: 06/10/2019 DATE OF DISCHARGE: 06/13/2019 DISCHARGED BY: Dr. De La O REASON FOR ADMISSION: 79 years old male with past medical history of COPD, history of DVT, pneumonia, sepsis, anxiety, on palliative care with hospice services, was sent from the extended care facility due to chest discomfort. Patient was a poor historian and unable to provide detailed history. No fevers in the emergency department. No shortness of breath. No abdominal symptoms. Patient was considered to be at high risk for COVID 19 and was tested in ED. Patient started on broad-spectrum antibiotics. Chest x-ray demonstrated no acute cardiopulmonary pathology. CTA of the chest revealed no evidence of pulmonary emboli, aortic dissection or aneurysm. Pulmonary emphysema. Gallstones. No clear evidence of pneumonia. Laboratory work-up revealed no leukocytosis , hemoglobin 12.5, hematocrit 35.1. Lymphocytes 19.3 BUN 22, creatinine 0.8. Glucose 120. Stable electrolytes. Troponin negative. Pro BNP 715. ECG revealed sinus tachycardia ( HR 109), no acute ischemic changes. AST 96, ALP 100. Albumin 2.6. Urinalysis was unremarkable. CONSULTANTS: ID specialist Dr. Fajardo HOSPITAL COURSE: Patient admitted to telemetry floor. Patient started on empiric antibiotics. Patient was kept in droplet and contact isolation. Blood cultures were negative. Influenza swab was negative. COVID 19 came back negative. Urine culture was negative. Isolation was discontinued. No leukocytosis. Fevers resolved. ID specialist recommended to continue oral antibiotics upon discharge to complete the course. Patient initially started on steroids with gradual tapering. Supplemental oxygen provided and titrated to keep pulse oximetry above 92%. Pulmonary toilet with bronchodilator via HHN provided. Antitussive provided as needed. Venous duplex bilateral lower extremity revealed no evidence of acute DVT. Follow-up chest x-ray also revealed no acute cardiopulmonary pathology. DVT prophylaxis provided. Bedside swallow evaluation revealed evidence of dysphagia. Diet texture provided as per speech therapist recommendation with strict aspiration precautions. Protein supplements provided as per travel registered nurse icu recommendation. Continue skilled dysphagia management and treatment at the facility. Home medication continued. Supportive care provided. Bowel regimen instituted. Renal parameters and electrolytes were closely monitored. BUN from 22 down to 13 , creatinine remained stable. Patient clinically stabilized and was ready for discharge to group home facility for continuation of care. FINAL DIAGNOSES: COPD with acute exacerbation Emphysema Possible sepsis History of DVT Mild dehydration Transaminitis of unclear etiology Severe protein calorie malnutrition Dysphagia DISCHARGE MEDICATIONS: See Medication Reconciliation list. DISCHARGE INSTRUCTIONS: Patient was discharged to the group home facility. Follow up with medical doctor at the facility. I have been assigned to dictate discharge summary for this account. I was not involved in the patient's management. Isabel Frye NP Jun 14, 2019 13:05
== END 2019-06-13 18:06 | DRG 720 ==
LOC: EDBD 01:27 → EMR 01:40 → 2W 03:49 → EDBEDREQ 05:08 → 2W 20:16 → 2E 06-13 07:51
DX: A41.9 Sepsis, unspecified organism (principal); E43 Unspecified severe protein-calorie malnutrition; J44.1 Chronic obstructive pulmonary disease with (acute) exacerbation; E86.0 Dehydration; Z68.1 Body mass index [BMI] 19.9 or less, adult; Z86.718 Personal history of other venous thrombosis and embolism; R74.0 Nonspecific elevation of levels of transaminase and lactic acid dehydrogenase [LDH]
CPT/HCPCS: 36415; 71045; 71275; 80048; 80053; 81003; 82550; 83605; 83735; 83880; 84484; 85025; 85610; 85730; 86710; 87040; 87070; 87081; 87086; 87205; 87635; 93005; 93971; 96365; 96368; 99285; J7030; J8499